=== PATIENT | female | born 1995 | race Caucasian/White ===

== ENCOUNTER 2022-03-05 13:09 | Emergency (ER) | payer OTHER ==
[2022-03-05 13:18] VITALS: RESP 18; TEMP 98.5
--- NOTE | 2022-03-05 15:08 | CT ---
EXAMINATION TYPE: CT brain dania wo con DATE OF EXAM: 03/05/2022 COMPARISON: None HISTORY: 26-year-old female with head injury with loss of consciousness, fall yesterday. CT DLP: 1256.4 mGycm Automated exposure control for dose reduction was used. Technique: Examination of the head was done in axial plane without intravenous contrast. Coronal and sagittal reconstructions performed. CT of the cervical spine was obtained in axial plane without intravenous injection of contrast mater ial. Coronal and sagittal reformatted images were obtained from the axial views for evaluation of f ractures, spinal alignment and canal. FINDINGS: Head: There is no evidence of acute intracranial hemorrhage, acute ischemic changes, mass, mass-effect, or extra-axial fluid collection. There is no effacement of cerebral sulci or basal subarachnoid cister ns. There is no hydrocephalus. There is no midline shift. [place]ano-white matter distinction is preserv ed. Suspected couple calcified sebaceous cysts along the posterior scalp. No calvarial fracture. Paranasa l sinuses and mastoid air cells well pneumatized. Orbits and globes are intact. Cervical spine: The alignment of the cervical spine is normal on coronal and reformatted images. There is no cranial vertebral abnormality. Fracture of the cervical spine is not seen. There is no evidence of focal disk herniation. There is no central spinal canal stenosis. Sagittal and coronal reformatted images confirm above findings. COMBINED IMPRESSION: 1. No acute intracranial abnormality seen. 2. No acute fracture or malalignment of the cervical spine.
--- NOTE | 2022-03-05 15:48 | ED ---
Head Injury HPI - General Chief complaint: Head Injury Stated complaint: Mental Status Time Seen by Provider: 03/05/22 13:24 Source: patient Mode of arrival: ambulatory Limitations: no limitations - History of Present Illness Initial comments: Patient is a 26-year-old female presenting with chief complaint of head injury. Patient states that last night she was taking a shower when she hit her head and lost consciousness. Patient does not remember much prior to or after the incident. Patient has been having headaches, memory recall issues, dizziness and light sensitivity today. Patient is currently staying at [facility]. She denies any nausea, vomiting, vision or hearing changes, chest pain, shortness of breath, fever, chills, abdominal pain, numbness, tingling, weakness. - Related Data Allergies/Adverse reactions: Allergies Allergy/AdvReac Type Severity Reaction Status Date / Time No Known Allergies Allergy Verified 03/05/22 13:15 Review of Systems ROS Statement: Those systems with pertinent positive or pertinent negative responses have been documented in the HPI. ROS Other: All systems not noted in ROS Statement are negative. 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 Absent: scleral icterus Neck exam: Present: normal inspection. Absent: tenderness Respiratory exam: Present: normal lung sounds bilaterally. Absent: respiratory distress, wheezes, rales, rhonchi, stridor Cardiovascular Exam: Present: regular rate, normal rhythm, normal heart sounds. Absent: systolic murmur, diastolic murmur, rubs, gallop, clicks Neurological exam: Present: alert, oriented X3, CN II-XII intact Expanded Patient oriented to: Present: person, place, time Speech: Present: fluid speech Cranial nerves: EOM's Intact: Normal, Tongue Deviation: Normal, Facial Sensation: Normal Motor strength exam: RUE: 5, LUE: 5, RLE: 5, LLE: 5 Eye Response: (4) open spontaneously Motor Response: (6) obeys commands Verbal Response: (5) oriented Kayode Total: 15 Psychiatric exam: Present: normal affect, normal mood Skin exam: Present: warm, dry, intact, normal color. Absent: rash Course Vital Signs 03/05/22 03/05/22 13:15 16:10 Temperature 98.5 F Pulse Rate 99 78 Respiratory 18 18 Rate Blood Pressure 115/85 124/78 O2 Sat by Pulse 98 99 Oximetry Medical Decision Making - Medical Decision Making Patient is a 26-year-old female presenting with chief complaint of head injury. Patient states that last night she fell in the shower, hit her head, loss consciousness. Today she is complaining of light sensitivity, headache, d izziness, memory recall issues. On exam there are no focal neurological deficits. Full strength and sensation, pupils equal round reactive to light and accommodating, extraocular motions are intact, patient is A and O 3. CT of the brain and C-spine without contrast shows no acute intracranial process or fracture of the cervical spine. Patient was provided education on concussion. She appears stable for discharge with outpatient follow-up at this time. Follow-up with PCP in one to 2 days. Report back to ER if any worsening symptoms. I discussed return parameters alarm symptoms. I answered all questions. Patient conveyed verbal understanding and agreed to the plan. I discussed this case with my attending Dr. Justin. Disposition Clinical Impression: Concussion with loss of consciousness Disposition: HOME SELF-CARE Condition: Good Instructions (If sedation given, give patient instructions): Concussion (ED), Head Injury (ED) Additional Instructions: Follow-up with PCP in one to 2 days. Report back to ER with any worsening symptoms. Take Motrin and Tylenol for headache control as needed Is patient prescribed a controlled substance at d/c from ED?: No Referrals: Nonstaff,Physician [Primary Care Provider] - 1-2 days Time of Disposition: 15:48
[2022-03-05 16:12] VITALS: BP 124/78; PULSE 78
== END 2022-03-05 16:12 | disposition home or self-care (01) ==
LOC: EC 13:09
DX: S06.0X9A Concussion with loss of consciousness of unspecified duration, initial encounter (principal); R40.2362 Coma scale, best motor response, obeys commands, at arrival to emergency department; R40.2142 Coma scale, eyes open, spontaneous, at arrival to emergency department; R40.2252 Coma scale, best verbal response, oriented, at arrival to emergency department; F17.200 Nicotine dependence, unspecified, uncomplicated; W22.8XXA Striking against or struck by other objects, initial encounter
CPT/HCPCS: 70450; 72125; 99284